=== PATIENT | female | born 1935 | race Caucasian/White ===

== ENCOUNTER 2019-08-10 06:21 | Emergency (ER) | payer OTHER ==
[~2019-08-10] VITALS: Ht 162.6 cm; Wt 63.5 kg
--- NOTE | 2019-08-10 06:54 | NUR ---
BLOOD COLLECTED AND SENT TO LAB FOR TESTING.
--- NOTE | 2019-08-10 06:54 | NUR ---
Note undone in EDM - 08/10/19 at 0658 by ANUSHKA PT CAME TO ER BED 1 BIB RA FOR RIGHT HIP AND MID LOWER BACK PAIN S/P GROUND LEVEL FALL. -KO, DENIES HITTING HEAD. LACERATION ON RIGHT ELBOW, RIGHT WRIST, AND LEFT WRIST. PATIENT STATES SHE IS ON COUMADIN. BLEEDING STOPPED. AAOX4. NOT IN ANY DISTRESS. NO SOB. BREATHING EVENLY AND UNLABORED. CONNECTED TO MONITOR.
--- NOTE | 2019-08-10 06:58 | NUR ---
PT CAME TO ER BED 1 BIB RA FOR LEFT HIP AND MID LOWER BACK PAIN S/P GROUND LEVEL FALL. -KO, DENIES HITTING HEAD. LACERATION ON RIGHT ELBOW, RIGHT WRIST, AND LEFT WRIST. PATIENT STATES SHE IS ON COUMADIN. HX OF RIGHT RADICAL MASTECTOMY. BLEEDING STOPPED. AAOX4. NOT IN ANY DISTRESS. NO SOB. BREATHING EVENLY AND UNLABORED. CONNECTED TO MONITOR. Addendum: 08/10/19 at 0700 by ANUSHKA DOES NOT WANT PAIN MEDICATIONS AT THIS TIME.
--- NOTE | 2019-08-10 07:10 | NUR ---
RAD TECHS AT BEDSIDE TO TAKE PT'S XRAY
[2019-08-10 07:12] LABS: CREATININE 1.1 mg/dL (0.6-1.3); POTASSIUM 4.8 mmol/L (3.5-5.1)
--- NOTE | 2019-08-10 07:17 | NUR ---
PATIENT TAKEN TO CT VIA [facility]
[2019-08-10 07:28] LABS: BASOPHILS % (AUTO) 0.9 % (0.0-2.0); EOSINOPHILS % (AUTO) 1.2 % (0.0-6.0); HEMATOCRIT 34 % (33-45); HEMOGLOBIN 11.2 g/dL (11.5-14.8); LYMPHOCYTES % (AUTO) 30.1 % (20.0-44.0); MEAN CORPUSCULAR HGB CONC 33 g/dl (31.0-36.0); MEAN CORPUSCULAR VOLUME 92 fL (82-100); MONOCYTES # (AUTO) 0.2 /CMM (0.1-1.30); NEUTROPHILS # (AUTO) 2.1 /CMM (1.8-8.9); NEUTROPHILS % (AUTO) 61.8 % (43.0-81.0); PLATELET COUNT (AUTO) 92 /CMM (150-450); RED BLOOD CELL COUNT(AUTO) 3.72 MIL/uL (4.0-5.2); WHITE BLOOD COUNT (AUTO) 3.4 K/uL (4.3-11.0)
--- NOTE | 2019-08-10 07:46 | NUR ---
RETURNED FROM CT
[2019-08-10] MEDS ORDERED: ONDANSETRON HCL/PF 4 MG/2 ML VIAL ONE (07:57)
[2019-08-10] MEDS ORDERED: HYDROMORPHONE 1 MG/1 ML DISP.SYRIN ONE ×2 (07:58→09:42)
[2019-08-10] MEDS ORDERED: HYDROMORPHONE 1 MG/1 ML DISP.SYRIN IV ONE ×2 (08:00→10:00)
[2019-08-10] MEDS ORDERED: ONDANSETRON HCL/PF - ER 4 MG/2 ML VIAL IV ONE (08:00)
--- NOTE | 2019-08-10 08:35 | NUR ---
NURSING SUP GAVE [phone].
[2019-08-10 08:45] LABS: EOSINOPHILS % (MANUAL) 2 % (0-4); LYMPHOCYTES % (MANUAL) 29 % (16-48); MONOCYTES % (MANUAL) 4 % (0-11.0); NEUTROPHILS % (MANUAL) 65 (42-76)
--- NOTE | 2019-08-10 10:35 | NUR ---
PT GOING TO [facility]. ACCEPTED DR. DORINDA BLAKE. NUMBER FOR REPORT. . [id number].
--- NOTE | 2019-08-10 11:19 | NUR ---
report given to Barbara ONEAL from [facility] for nataliya.
[2019-08-10 11:54] VITALS: BP 110/61
--- NOTE | 2019-08-10 11:55 | NUR ---
Patient picked up by private ambulance in no distress, CD provided, report given to Barbara ONEAL for nataliya. Going to [facility] sunset.
== END 2019-08-10 11:55 | disposition short-term general hospital (02) ==
LOC: ER 06:22
DX: S32.89XA Fracture of other parts of pelvis, initial encounter for closed fracture (principal); S32.028A Other fracture of second lumbar vertebra, initial encounter for closed fracture; S22.9XXA Fracture of bony thorax, part unspecified, initial encounter for closed fracture; R91.1 Solitary pulmonary nodule; D61.818 Other pancytopenia; I48.91 Unspecified atrial fibrillation; Z90.10 Acquired absence of unspecified breast and nipple; Z90.49 Acquired absence of other specified parts of digestive tract; Z85.3 Personal history of malignant neoplasm of breast; Z85.038 Personal history of other malignant neoplasm of large intestine; W18.39XA Other fall on same level, initial encounter; Y93.89 Activity, other specified; Y92.89 Other specified places as the place of occurrence of the external cause; Y99.8 Other external cause status
CPT/HCPCS: 36415; 51702; 71045; 72131; 72192; 73503; 80048; 85025; 85730; 93005; 96374; 96375; 96376; 99285; J1170 ×2; J2405 ×2; 73502